=== PATIENT | male | born 1955 | race Caucasian/White ===

== ENCOUNTER 2017-05-02 15:43 | Emergency (ER) | payer MEDICAID ==
[~2017-05-02] VITALS: Ht 182.9 cm; Wt 73.0 kg
[2017-05-02] MEDS ORDERED: IBUPROFEN 200 MG TABLET PO ONE (16:00)
[2017-05-02] MEDS ORDERED: IBUPROFEN 200 MG TABLET ONE (16:03)
[2017-05-02 16:04] LABS: HEMATOCRIT 37.1 % (39.2-51.8); WHITE BLOOD COUNT 12.9 x10^3/uL (3.4-10)
[2017-05-02 16:13] LABS: BLOOD UREA NITROGEN 38 mg/dL (7-18)
[2017-05-02] MEDS ORDERED: SODIUM CHLORIDE 0.9% 1,000ML IVBOLUS ONE (16:30)
[2017-05-02] MEDS ORDERED: SODIUM CHLORIDE FLUSH 10ML SYR IVF ONE (16:30)
[2017-05-02] MEDS ORDERED: PLEASE ENTER HEIGHT AND WEIGHT MC SCH (16:30)
[2017-05-02 17:09] LABS: DIFF TOTAL CELLS COUNTED 100 CELL DIFF
[2017-05-02] MEDS ORDERED: LABETALOL 5MG/ML, 20ML ONE (17:23)
[2017-05-02] MEDS ORDERED: LABETALOL 5MG/ML, 20ML IVPush ONE (17:30)
[2017-05-02 17:46] VITALS: BP 178/87
[2017-05-02 18:03] LABS: ANISOCYTOSIS 1+; POIKILOCYTOSIS 1+
[2017-05-02 18:05] LABS: VERIFY COUNTS? YES
== END 2017-05-02 18:14 | disposition home or self-care (01) ==
LOC: ED 18:00
DX: I12.9 Hypertensive chronic kidney disease with stage 1 through stage 4 chronic kidney disease, or unspecified chronic kidney disease (principal); N18.3 Chronic kidney disease, stage 3 (moderate); J44.9 Chronic obstructive pulmonary disease, unspecified
CPT/HCPCS: 36415; 80048; 82040; 85025; 93005; 96361; 96374; 99285; J7030

== ENCOUNTER 2017-07-10 06:51 | Day surgery (SDC) | payer MEDICAID ==
[~2017-07-10] VITALS: Ht 182.9 cm; Wt 73.4 kg
[2017-07-10] MEDS ORDERED: PROTAMINE SULFATE 10 MG/ML, 5ML ONE (06:56)
[2017-07-10] MEDS ORDERED: THROMBIN 5,000 UNIT VIAL TP ONE (06:56)
[2017-07-10] MEDS ORDERED: BUPIVACAINE/PF 0.5% ONE (06:56)
[2017-07-10] MEDS ORDERED: HEPARIN 1,000 UNITS/ML, 10ML ONE (06:57)
[2017-07-10] MEDS ORDERED: SODIUM CHLORIDE 0.9% 1,000 ML IV SCH (07:44)
[2017-07-10 07:51] VITALS: BP 132/78
[2017-07-10] MEDS ORDERED: TIZA2TAB PO (07:51)
[2017-07-10] MEDS ORDERED: OXYC5CAP2 PO (07:51)
[2017-07-10] MEDS ORDERED: simvastatin PO (07:51)
[2017-07-10] MEDS ORDERED: FURO80TA3 PO (07:51)
[2017-07-10] MEDS ORDERED: LISI40TA PO (07:51)
[2017-07-10] MEDS ORDERED: CARV-39 PO (07:51)
[2017-07-10] MEDS ORDERED: CLON0.1T PO (07:51)
[2017-07-10] MEDS ORDERED: AMLO10TA2 PO (07:51)
[2017-07-10] MEDS ORDERED: vitamin d PO (07:51)
[2017-07-10] MEDS ORDERED: HYDR100T25 PO (07:51)
[2017-07-10] MEDS ORDERED: RANI150C PO (07:51)
[2017-07-10] MEDS ORDERED: MIDAZOLAM 1 MG/ML, 2ML ONE (09:18)
[2017-07-10] MEDS ORDERED: FENTANYL PF 100 MCG/2ML ONE (09:19)
[2017-07-10] MEDS ORDERED: CEFAZOLIN 1,000 MG ONE ×2 (09:34)
[2017-07-10] MEDS ORDERED: PROPOFOL 10 MG/ML, 20ML ONE (09:34)
[2017-07-10] MEDS ORDERED: hydrALAzine 20 MG/ML, 1ML IV PRN (10:00)
[2017-07-10] MEDS ORDERED: OXYcodone 5 MG/5 ML ORAL.SOL UDC PO PRN (10:00)
[2017-07-10] MEDS ORDERED: FENTANYL PF 100 MCG/2ML IV PRN (10:00)
[2017-07-10] MEDS ORDERED: PROMETHAZINE 25 MG/ML, 1ML IV PRN (10:00)
[2017-07-10] MEDS ORDERED: ONDANSETRON 2MG/ML, 2ML IVPush PRN (10:00)
[2017-07-10] MEDS ORDERED: LABETALOL 5MG/ML, 20ML IV PRN (10:00)
[2017-07-10] MEDS ORDERED: ACETAMINOPHEN 325 MG TABLET PO PRN (10:00)
[2017-07-10] MEDS ORDERED: HYDROmorphone 1 MG/ML, 1ML IV PRN (10:00)
[2017-07-10] MEDS ORDERED: OXYcodone 5 MG/5 ML ORAL.SOL UDC ONE (11:16)
[2017-07-10] MEDS ORDERED: ACETAMINOPHEN 325 MG TABLET ONE (11:16)
== END 2017-07-10 13:10 | disposition home or self-care (01) ==
LOC: OUT 06:51
PROVIDERS: ATTEND Surgery Vascular Surgery
DX: N19 Unspecified kidney failure (principal); I12.0 Hypertensive chronic kidney disease with stage 5 chronic kidney disease or end stage renal disease; Z86.73 Personal history of transient ischemic attack (TIA), and cerebral infarction without residual deficits; K21.9 Gastro-esophageal reflux disease without esophagitis
CPT/HCPCS: 36415; 36821; 80047; J0690; J1644; J2250; J2704; J3010; J7030; J2720; J3490

== ENCOUNTER 2017-07-10 21:43 | Emergency (ER) | payer MEDICAID ==
[~2017-07-10] VITALS: Ht 182.9 cm; Wt 74.8 kg
[~2017-07-10 21:43] MED LIST: AMLO10TA2 PO; CARV-39 PO; CLON0.1T PO; FURO80TA3 PO; HYDR100T25 PO; LISI40TA PO; OXYC5CAP2 PO; RANI150C PO; TIZA2TAB PO; simvastatin PO; vitamin d PO
[2017-07-10 21:47] VITALS: BP 153/78
== END 2017-07-10 23:05 | disposition home or self-care (01) ==
LOC: ED 22:23
DX: I97.638 Postprocedural hematoma of a circulatory system organ or structure following other circulatory system procedure (principal); I10 Essential (primary) hypertension; J44.9 Chronic obstructive pulmonary disease, unspecified
CPT/HCPCS: 99281

== ENCOUNTER 2017-12-11 07:18 | Day surgery (SDC) | payer MEDICAID ==
[~2017-12-11] VITALS: Ht 182.9 cm; Wt 75.8 kg
[~2017-12-11 07:18] MED LIST changes: +BUPIVACAINE/PF 0.5% ONE; +HEPARIN 1,000 UNITS/ML, 10ML ONE; +PROTAMINE SULFATE 10 MG/ML, 5ML ONE; +THROMBIN 5,000 UNIT VIAL TP ONE
[2017-12-11 08:28] VITALS: BP 187/92
[2017-12-11] MEDS ORDERED: SODIUM CHLORIDE 0.9% 1,000 ML IV SCH (08:36)
[2017-12-11] MEDS ORDERED: MIDAZOLAM 1 MG/ML, 2ML ONE (09:11)
[2017-12-11] MEDS ORDERED: FENTANYL PF 250 MCG/5ML ONE (09:11)
[2017-12-11] MEDS ORDERED: SODIUM CHLORIDE 0.9% PF 10ML ONE (09:12)
[2017-12-11] MEDS ORDERED: CEFAZOLIN 1,000 MG ONE ×2 (09:12)
[2017-12-11] MEDS ORDERED: PROPOFOL 10 MG/ML, 20ML ONE (09:12)
[2017-12-11] MEDS ORDERED: HYDROmorphone 1 MG/ML, 1ML IV PRN (10:00)
[2017-12-11] MEDS ORDERED: OXYcodone 5 MG/5 ML ORAL.SOL UDC PO PRN (10:00)
[2017-12-11] MEDS ORDERED: morphine SULFATE 10 MG/ML, 1ML IV PRN (10:00)
[2017-12-11] MEDS ORDERED: ONDANSETRON 2MG/ML, 2ML IVPush PRN (10:00)
[2017-12-11] MEDS ORDERED: FENTANYL PF 100 MCG/2ML IV PRN (10:00)
[2017-12-11] MEDS ORDERED: LABETALOL 5MG/ML, 20ML IV PRN (10:00)
[2017-12-11] MEDS ORDERED: hydrALAzine 20 MG/ML, 1ML IV PRN (10:00)
[2017-12-11] MEDS ORDERED: PROMETHAZINE 12.5 MG SUPP PR PRN (10:00)
[2017-12-11] MEDS ORDERED: PROMETHAZINE 25 MG/ML, 1ML IV PRN (10:00)
[2017-12-11] MEDS ORDERED: OXYcodone 5 MG/5 ML ORAL.SOL UDC ONE (11:31)
[2017-12-11] MEDS ORDERED: FENTANYL PF 100 MCG/2ML ONE (11:31)
== END 2017-12-11 12:40 ==
LOC: OUT 07:18
PROVIDERS: ATTEND Surgery Vascular Surgery
DX: T82.898A Other specified complication of vascular prosthetic devices, implants and grafts, initial encounter (principal); K21.9 Gastro-esophageal reflux disease without esophagitis; I12.0 Hypertensive chronic kidney disease with stage 5 chronic kidney disease or end stage renal disease; N18.6 End stage renal disease; Y83.8 Other surgical procedures as the cause of abnormal reaction of the patient, or of later complication, without mention of misadventure at the time of the procedure; Y92.89 Other specified places as the place of occurrence of the external cause; Z88.0 Allergy status to penicillin
CPT/HCPCS: 36415; 36821; 80047; 93005; J0690; J1644; J2250; J2704; J3010; J7030; J2720; J3490

== ENCOUNTER 2018-03-02 05:31 | Day surgery (SDC) | payer MEDICAID ==
[~2018-03-02] VITALS: Ht 182.9 cm; Wt 71.0 kg
[~2018-03-02 05:31] MED LIST changes: -BUPIVACAINE/PF 0.5% ONE; -HEPARIN 1,000 UNITS/ML, 10ML ONE; -PROTAMINE SULFATE 10 MG/ML, 5ML ONE; -THROMBIN 5,000 UNIT VIAL TP ONE
[2018-03-02 06:04] VITALS: BP 108/62
[2018-03-02] MEDS ORDERED: POTA10TA31 PO (06:12)
[2018-03-02] MEDS ORDERED: SODIUM CHLORIDE 0.9% 1,000 ML IV SCH (06:17)
[2018-03-02] MEDS ORDERED: HEPARIN 1,000 UNITS/ML, 10ML ONE (06:46)
[2018-03-02] MEDS ORDERED: THROMBIN 5,000 UNIT VIAL TP ONE (06:46)
[2018-03-02] MEDS ORDERED: BUPIVACAINE/PF 0.25% ONE (06:46)
[2018-03-02] MEDS ORDERED: PROTAMINE SULFATE 10 MG/ML, 5ML ONE (06:46)
[2018-03-02] MEDS ORDERED: EPINEPHRINE 1 MG/ML, 1ML ONE (06:47)
[2018-03-02] MEDS ORDERED: FENTANYL PF 100 MCG/2ML ONE ×2 (07:16→08:36)
[2018-03-02] MEDS ORDERED: HYDROcodone/APAP 7.5-325MG/15ML UDC PO PRN (07:30)
[2018-03-02] MEDS ORDERED: LABETALOL 5MG/ML, 20ML IV PRN (07:30)
[2018-03-02] MEDS ORDERED: hydrALAzine 20 MG/ML, 1ML IV PRN (07:30)
[2018-03-02] MEDS ORDERED: ACETAMINOPHEN 325 MG TABLET PO PRN (07:30)
[2018-03-02] MEDS ORDERED: ONDANSETRON ODT 8 MG PO PRN (07:30)
[2018-03-02] MEDS ORDERED: FENTANYL PF 100 MCG/2ML IV PRN (07:30)
[2018-03-02] MEDS ORDERED: OXYcodone 5 MG/5 ML ORAL.SOL UDC PO PRN (07:30)
[2018-03-02] MEDS ORDERED: GLYCOPYRROLATE 0.2MG/1ML, 5ML ONE (07:31)
[2018-03-02] MEDS ORDERED: CEFAZOLIN 1,000 MG ONE (07:31)
[2018-03-02] MEDS ORDERED: VASOPRESSIN 20 UNIT/ML, 1ML ONE (07:31)
[2018-03-02] MEDS ORDERED: PROPOFOL 10 MG/ML, 20ML ONE (07:31)
[2018-03-02] MEDS ORDERED: HYDROcodone/APAP 7.5-325MG/15ML UDC ONE (08:36)
== END 2018-03-02 10:30 ==
LOC: OUT 05:31
PROVIDERS: ATTEND Surgery Vascular Surgery
DX: T82.590A Other mechanical complication of surgically created arteriovenous fistula, initial encounter (principal); I12.0 Hypertensive chronic kidney disease with stage 5 chronic kidney disease or end stage renal disease; N18.6 End stage renal disease; J44.9 Chronic obstructive pulmonary disease, unspecified; Z88.0 Allergy status to penicillin; Y83.8 Other surgical procedures as the cause of abnormal reaction of the patient, or of later complication, without mention of misadventure at the time of the procedure; Y92.89 Other specified places as the place of occurrence of the external cause
CPT/HCPCS: 36415; 36819; 80047; J1644; J3010; J7030; J0171; J0690; J2704; J2720; J3490

== ENCOUNTER 2018-12-18 15:57 | Emergency (ER) | payer MEDICAID ==
[~2018-12-18] VITALS: Ht 185.4 cm; Wt 73.0 kg
[~2018-12-18 15:57] MED LIST changes: -AMLO10TA2 PO; +AMLO10TA8 PO; -CLON0.1T PO; +CLON0.1T22 PO; +POTA10TA31 PO
[2018-12-18 16:01] VITALS: BP 198/114
[2018-12-18] MEDS ORDERED: CHOL5000 PO (16:07)
[2018-12-18] MEDS ORDERED: OXYC10TA6 PO (16:09)
[2018-12-18] MEDS ORDERED: ALBU8.5H8 INH (16:09)
[2018-12-18] MEDS ORDERED: RANI150C PO (16:12)
[2018-12-18] MEDS ORDERED: SIMV5TAB14 PO (16:12)
[2018-12-18] MEDS ORDERED: LISI40TA PO (16:12)
[2018-12-18] MEDS ORDERED: IPRA4AER INH (16:12)
--- NOTE | 2018-12-18 16:22 | NUR ---
MANAGER PHARMACEUTICAL AT BEDSIDE EVALUATING PT.
[2018-12-18 16:58] LABS: BASOPHILS # (AUTO) 0.05 x10^3/uL (0-0.1); BASOPHILS % (AUTO) 1 % (0-1); EOSINOPHILS % (AUTO) 2 % (1-7); LYMPHOCYTES # (AUTO) 1.79 x10^3/uL (1-3.4); LYMPHOCYTES % (AUTO) 35 % (22-44); MD NO; MEAN CORPUSCULAR HEMOGLOBIN 30.4 pg (27.5-34.5); MEAN CORPUSCULAR HGB CONC 33.2 g/dL (33.2-36.2); MEAN CORPUSCULAR VOLUME 91.5 fL (81-97); MEAN PLATELET VOLUME 7.8 fL (7.4-10.4); MONOCYTES # (AUTO) 0.44 x10^3/uL (0.2-0.8); MONOCYTES % (AUTO) 9 % (2-9); NEUTROPHILS % (AUTO) 53 % (42-75); PLATELET COUNT 119 x10^3/uL (130-400); RED BLOOD COUNT 4.28 x10^6/uL (4.38-5.82); RED CELL DISTRIBUTION WIDTH 16.5 % (9.4-14.8)
[2018-12-18 17:02] LABS: ALANINE AMINOTRANSFERASE 46 U/L (12-78); ALBUMIN 4.1 g/dL (3.4-5.0); ANION GAP 9 mmol/L (5-15); CALCIUM 8.7 mg/dL (8.5-10.1); CHLORIDE 104 mmol/L (98-107); CREATININE 4.41 mg/dL (0.7-1.3)
[2018-12-18 17:06] LABS: ALKALINE PHOSPHATASE 103 U/L (45-117); BILIRUBIN,TOTAL 0.5 mg/dL (0.2-1.0); TOTAL PROTEIN 7.7 g/dL (6.4-8.2); TROPONIN I 0.069 ng/mL (0.000-0.045)
--- NOTE | 2018-12-18 17:29 | NUR ---
PT YELLING OUTSIDE OF ROOM TO DISCONNECT HIM FROM MONITOR AND TO "TAKE THIS SHIT OUT OF ME." PT UPSET BECAUSE RN HAS NOT PROVIDED PT WITH WATER. NOTE TO K[employer]IT T[employer]ING DYER WAS IN COMPUTER BUT KNIT TUBING [employer]ER WAS BUSY WITH ANOTHER PT. RN EXPLAINED TO PT THAT HE HAD TO BE PATIENT AND WHEN SHE WAS DONE WITH THE OTHER PT SHE WOULD LET RN KNOW IF IT IS OKAY TO PROVIDE HIM WITH WATER. PT STATED I WANT TO LEAVE "HOW MUCH LONGER DO I HAVE TO WAIT." RN WAITED FOR [employer] T[employer]ING [employer]ER TO BE DONE WITH HER OTHER PT. RN INFORMED HER THAT PT WOULD LIKE TO LEAVE. KNIT TUBING DYER STATED PT WOULD HAVE TO SIGN AMA IF HE WISHES TO LEAVE. RN OBTAINED PAPERWORK. RN DISCUSSED WITH PT THAT HE WOULD HAVE TO SIGN THE AMA PAPERWORK IF HE WOULD LIKE TO LEAVE. RN DISCUSSED THE RISKS OF LEAVING AMA WITH POSSIBLE . PT VERBALIZED UNDERSTANDING. PIV WAS REMOVED WITH TIP INTACT. RN WALKED PT OUT OF ED.
== END 2018-12-18 17:35 | disposition left against medical advice (07) ==
LOC: ED 17:29
DX: R06.00 Dyspnea, unspecified (principal); J44.9 Chronic obstructive pulmonary disease, unspecified; I13.0 Hypertensive heart and chronic kidney disease with heart failure and stage 1 through stage 4 chronic kidney disease, or unspecified chronic kidney disease; N18.9 Chronic kidney disease, unspecified; I50.9 Heart failure, unspecified; Z99.2 Dependence on renal dialysis
CPT/HCPCS: 36415; 71045; 80053; 83880; 84484; 85025; 93005; 99284